=== PATIENT | female | born 1990 | race Caucasian/White ===

== ENCOUNTER 2018-07-22 12:01 | Emergency (ER) | payer SELFPAY ==
[2018-07-22 12:17] VITALS: BP 152/92; PULSE 74; TEMP 98.3; BMI 34.0
--- NOTE | 2018-07-22 13:29 | PDOC ---
History of Present Illness - General Chief Complaint: Depression Stated Complaint: ANXIETY Time Seen by Provider: 07/22/18 12:44 History Source: Patient Exam Limitations: No Limitations - History of Present Illness Initial Comments: 07/22/18 13:17 27 yo female no sig pmh presents to the ED with feelings of depression. Pt states she went through a difficult break up with her boyfriend 07/17/2018 which has been very difficult to handle. Admits to feelings of despair and unbearable anxiety when alone. Denies any thoughts of harming herself or others. Pt admits to having a great support system and lives with her mother but today was especially difficult since it was the first day she was left alone when her mother went to work. Pt called her mother while at work and mother convinced her to go to the ER. Pt admits to having break ups in the past that were easier to handle because she had a "rebound" but this time does not Mother is concerned that she may hurt herself and wants medications to be given Past History - Past Medical History Allergies/Adverse Reactions: Allergies Allergy/AdvReac Type Severity Reaction Status Date / Time No Known Allergies Allergy Verified 07/22/18 12:09 Home Medications: Ambulatory Orders No Home Medications 0 dose .ROUTE UTDICT 12/05/12 COPD: No - Suicide/Smoking/Psychosocial Hx Smoking Status: No Smoking History: Never smoked Number of Cigarettes Smoked Daily: 0 Review of Systems - Review of Systems Constitutional: No: Chills, Fever Respiratory: No: Shortness of Breath Cardiac (ROS): No: Chest Pain Neurological: No: Headache, Weakness, Unsteady Gait, Ataxia Psychiatric: Yes: Anxiety, Depression, Frequent Crying, Stressors, Sleep Pattern Change *Physical Exam - Vital Signs Last Vital Signs Temp Pulse Resp BP Pulse Ox 98.3 F 74 18 152/92 100 07/22/18 12:15 07/22/18 12:15 07/22/18 12:15 07/22/18 12:15 07/22/18 12:15 - Physical Exam General Appearance: Yes: Nourished, Appropriately Dressed, Apparent Distress ( while discussing stressors pt cries ). No: Disheveled, Alcohol on Breath, Intoxicated HEENT: positive: EOMI, CHARISSA Respiratory/Chest: positive: Lungs Clear. 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 negative: Sensory Deficit, Confused, Disoriented Moderate Sedation - Procedure Monitoring Vital Signs: Procedure Monitoring Vital Signs Temperature 98.3 F 07/22/18 12:15 Pulse Rate 74 07/22/18 12:15 Respiratory Rate 18 07/22/18 12:15 Blood Pressure 152/92 07/22/18 12:15 O2 Sat by Pulse Oximetry (%) 100 07/22/18 12:15 Medical Decision Making - Medical Decision Making 07/22/18 13:47 27 yo female no sig pmh presents to the ED with feelings of depression. Pt states she went through a difficult break up with her boyfriend 07/17/2018 which has been very difficult to handle. Admits to feelings of despair and unbearable anxiety when alone. Denies any thoughts of harming herself or others. Pt admits to having a great support system and lives with her mother but today was especially difficult since it was the first day she was left alone when her mother went to work. Pt called her mother while at work and mother convinced her to go to the ER. Pt admits to having break ups in the past that were easier to handle because she had a "rebound" but this time does not Mother is concerned that she may hurt herself and wants medications to be given Discussed that medications at this time are not indicated and can be habit forming/addictive. Pt is experiencing normal signs of depression related to a recent stress that should be managed with help from friends and family and a therapist/information that has been provided. Vitals stable No current medical complaints Social work involved and provide appropriate resources. See social work note Pt is safe for DC home with mother and f/u with therapist Mother and pt comfortable with plan *DC/Admit/Observation/Transfer Diagnosis at time of Disposition: Depressed Qualifiers: Depression Type: unspecified Qualified Code(s): F32.9 - Major depressive disorder, single episode, unspecified - Discharge Dispostion Disposition: HOME Condition at time of disposition: Stable Decision to Admit order: No - Referrals Referrals: [facility] [place] [facility] [place] [Provider Group] - Patient Instructions Printed Discharge Instructions: DI for Depression -- Adult Additional Instructions: [facility] ([facility] will call you within 48 hours for an appointment. Information was provided to you by social work, call the local therapists and schedule an appointment as soon as possible. Return to the ER for feelings of wanting to harm yourself or anyone else. Thank you - Post Discharge Activity Forms/Work/School Notes: My Personal Safety Plan
--- NOTE | 2018-07-22 14:18 | PDOC ---
Attending Attestation - Resident Resident Name: Leo Malone - ED Attending Attestation I have performed the following: I have examined & evaluated the patient, The case was reviewed & discussed with the resident, I agree w/resident's findings & plan - HPI HPI: 07/22/18 14:12 27-year-old female with no significant past medical history brought in by mom for feelings of depression in the setting of breaking up with her boyfriend. Patient has long-standing on again off again relationship with her boyfriend, last breakup was 5 days ago and she has been grieving, today for the first time she was alone at home and felt overwhelmed, mom brings her in for evaluation. Patient has no thoughts of hurting herself or others, no hallucinations. No history of SI/HI/AH/VH. Has not taken any substances or alcohol, has not attempted to hurt herself and does not want to hurt herself. Never had a therapist or psychiatrist. Denies any other complaints. No history of abuse. - Physicial Exam PE: 07/22/18 14:18 Vital signs are within normal limits Seated comfortably in stretcher, smiles on occasion, makes good eye contact, conversant and reasonable Skin is clear, exam is atraumatic - Medical Decision Making 07/22/18 14:19 27-year-old female breathing in the setting of recent breakup, no acute psychiatric concerns. Counseled at length with mom at bedside, no indication to start medications at this time Return precautions discussed regarding escalating symptoms Seen with social work and will refer to psychologist/therapist We'll give PCP referral as well
== END 2018-07-22 14:22 | disposition home or self-care (01) ==
LOC: JER 12:01
DX: F32.9 Major depressive disorder, single episode, unspecified (principal); F41.1 Generalized anxiety disorder
CPT/HCPCS: 99281-25

== ENCOUNTER 2020-02-03 08:21 | Emergency (ER) | payer SELFPAY ==
[2020-02-03 08:46] VITALS: BMI 29.2
--- NOTE | 2020-02-03 08:56 | PDOC ---
History of Present Illness - General Chief Complaint: Pain, Acute Stated Complaint: ABD PAIN History Source: Patient Exam Limitations: No Limitations - History of Present Illness Initial Comments: 02/03/20 09:22 29-year-old female , 2 terminations, LMP 3 weeks ago, h/o "abdominal issues " presents complaining of bloating with general abdominal cramping since 2 PM yesterday associated with nausea and approximately 7-8 episodes of vomiting. Denies diarrhea, fever, chills, back pain, urinary complaints, chest pain, shortness of breath, recent antibiotic use, recent travel, sick contact, vaginal discharge, vaginal bleeding or any other complaints. Patient states she is not tolerating fluids. Denies taking any pain medication today. Denies drinking alcohol or illicit substance abuse. ROS: as above PE: GENERAL: well-appearing, NAD HEAD: NCAT EYES: Pupils equal, round and reactive to light, sclera anicteric, conjunctiva clear ENT: pharynx: no erythema, no exudate, uvula midline NECK: supple CHEST: nontender RESP: clear, no w/r/r CARDIO: rrr, no m/g/r ABD: +BS, soft, minimal tenderness to palpation over midepigastric area and right upper quadrant, no r/g BACK: no midline spinal ttp, no CVAT EXTREMITIES: Normal range of motion, no edema NEUROLOGICAL: Normal speech, normal gait SKIN: Warm, Dry Is this a multiple visit Asthma Patient?: No Past History - Medical History Allergies/Adverse Reactions: Allergies Allergy/AdvReac Type Severity Reaction Status Date / Time No Known Allergies Allergy Verified 07/22/18 12:09 Home Medications: Ambulatory Orders No Home Medications 0 dose .ROUTE UTDICT 12/05/12 COPD: No - Reproductive History Is Patient Now?: No - Immunization History Immunization Up to Date: No - Psycho-Social/Smoking History Smoking Status: No Smoking History: Current some day smoker Have you smoked in the past 12 months: Yes Number of Cigarettes Smoked Daily: 0 Information on smoking cessation initiated: No - Substance Abuse Hx (Audit-C & DAST Scrn) How often the patient has a drink containing alcohol: Monthly or less Number of drinks the patient has on a typical day: 1 or 2 How often the patient has six or more drinks on one occasion: Less than monthly Score: In Men: 4 or > Positive; In Women: 3 or > Positive: 2 Screen Result (Pos requires Nsg. Audit-10AR): Negative In the last yr the pt used illegal drug/Rx for NonMed reason: No Score: Yes response is considered Positive: 0 Screen Result (Positive result requires Nsg. DAST-10): Negative *Physical Exam - Vital Signs Last Vital Signs Temp Pulse Resp BP Pulse Ox 97.9 F 71 18 119/70 99 02/03/20 08:31 02/03/20 08:31 02/03/20 08:31 02/03/20 08:31 02/03/20 08:31 ED Treatment Course - LABORATORY CBC & Chemistry Diagram: 02/03/20 09:36 02/03/20 09:36 Medical Decision Making - Medical Decision Making 02/03/20 09:25 29-year-old female , 2 terminations, LMP 3 weeks ago, h/o "abdominal issues " presents complaining of bloating with general abdominal cramping since 2 PM yesterday associated with nausea and approximately 7-8 episodes of vomiting. Denies diarrhea, fever, chills, back pain, urinary complaints, chest pain, shortness of breath, recent antibiotic use, recent travel, sick contact, vaginal discharge, vaginal bleeding or any other complaints. Patient states she is not tolerating fluids. Denies taking any pain medication today. Denies drinking alcohol or illicit substance abuse. cbc, cmp, ua, urine IV fluids Antiemetic Analgesia Abdominal ultrasound Reassess 02/03/20 12:59 CTAP: 1.6 cm cholelithiasis within the gallbladder neck without wall thickening Abdominal ultrasound: 1.2 x 2.2 cm gallstone without evidence of cholecystitis wbc: 15.2 Ordered morphine 2 mg IV given patient continues complaining of pain Will reassess 02/03/20 13:45 Pain improved Abdomen benign Prescription for Zofran sent to pharmacy Advised patient to follow-up with PMD this week return precautions discussed Discharge - Discharge Information Problems reviewed: Yes Clinical Impression/Diagnosis: Abdominal pain Qualifiers: Abdominal location: generalized Qualified Code(s): R10.84 - Generalized abdominal pain Condition: Stable Disposition: HOME - Admission No - Follow up/Referral Referrals: Noé Childress MD [Primary Care Provider] - - Patient Discharge Instructions Additional Instructions: You were found to have a stone in your gallbladder Avoid greasy, fatty foods Take Zofran as indicated and as needed for nausea Follow-up with your doctor this week If you develop worsening pain, bloating, fever, chills or any concerning symptom return to ED - Post Discharge Activity
[2020-02-03] MEDS ORDERED: ONDANSETRON 4 MG/2 ML VIAL IVPUSH ONE (09:11)
[2020-02-03] MEDS ORDERED: SODIUM CHLORIDE 0.9% 500 ML INFUS.BAG IV ONE (09:11)
[2020-02-03] MEDS ORDERED: morphine CARPU-JECT 2 MG/1 ML DISP.SYRIN IVPUSH ONE ×2 (09:11→12:56)
[2020-02-03] MEDS ORDERED: MORPHINE SULFATE 2 MG/ML VIAL ONE ×2 (09:22→12:59)
[2020-02-03 10:02] LABS: BASO % 0.1 % (0-2.0); HEMATOCRIT 43.1 % (32.4-45.2); HEMOGLOBIN 14.2 GM/dL (10.7-15.3); LYMPH % 3.6 % (8-40); MCH 27.8 pg (25.7-33.7); MCHC 32.9 g/dl (32.0-36.0); MEAN CELL VOLUME 84.3 fl (80-96); MEAN PLT VOLUME 8.3 fl (7.5-11.1); MONO % 1.5 % (3.8-10.2); NEUT % 94.8 % (42.8-82.8); PLATELET COUNT 314 K/MM3 (134-434); RBC 5.12 M/mm3 (3.60-5.2); RDW 14.4 % (11.6-15.6); WHITE BLOOD COUNT 15.2 K/mm3 (4.0-10.0)
[2020-02-03 10:06] LABS: EPI CELLS 36 /uL (0-25.1); HYALINE CASTS 17 /uL (0-3.1); URINE APPEARANCE CLOUDY; URINE BACTERIA >9,000 /uL (0-1359); URINE BILIRUBIN NEGATIVE (NEGATIVE); URINE COLOR YELLOW; URINE GLUCOSE (UA) NEGATIVE (NEGATIVE); URINE KETONE TRACE (NEGATIVE); URINE LEUK ESTERASE TRACE (NEGATIVE); URINE NITRITE NEGATIVE (NEGATIVE); URINE PROTEIN TRACE (NEGATIVE); URINE RBC 22 /uL (0-23.9); URINE WBC 187 /uL (0-25.8)
[2020-02-03 10:07] LABS: HCG,QUALITATIVE URINE Negative
[2020-02-03 10:39] LABS: BILIRUBIN,TOTAL 0.8 mg/dL (0.2-1); BLOOD UREA NITROGEN 7.4 mg/dL (7-18); CALCIUM 9.1 mg/dL (8.5-10.1); CREATININE 0.8 mg/dL (0.55-1.3); POTASSIUM 3.8 mmol/L (3.5-5.1); TOT PROT 8.7 g/dl (6.4-8.2)
[2020-02-03 12:27] LABS: ANISOCYTOSIS 0; MACROCYTOSIS 0; PLATELET ESTIMATE NORMAL
[2020-02-03 13:51] VITALS: BP 146/87; PULSE 67; TEMP 98
== END 2020-02-03 13:51 | disposition home or self-care (01) ==
LOC: JER 08:21 → SUPCPDRO 08:21 → JER 13:51
PROC: 3E033NZ Introduction of Analgesics, Hypnotics, Sedatives into Peripheral Vein, Percutaneous Approach (ICD-10-PCS; principal; 2020-02-03)
PROC: 3E033GC Introduction of Other Therapeutic Substance into Peripheral Vein, Percutaneous Approach (ICD-10-PCS; 2020-02-03)
DX: R10.84 Generalized abdominal pain (principal)
CPT/HCPCS: 36415; 74177-TC; 76705-TC; 80053; 81003; 84703; 85025; 99285-25; Q9967

== ENCOUNTER 2020-12-11 04:22 | Emergency (ER) | payer SELFPAY ==
[2020-12-11 04:52] VITALS: BMI 39.6
[2020-12-11] MEDS ORDERED: SODIUM CHLORIDE 0.9% 500 ML INFUS.BAG IV ONE (06:19)
[2020-12-11] MEDS ORDERED: ACETAMINOPHEN 1000 MG/100 ML VIAL (NON FORMULARY) IVPB ONE (06:19)
[2020-12-11] MEDS ORDERED: ACETAMINOPHEN INJECTION 100 ML IVPB ONE (06:22)
[2020-12-11 07:07] LABS: ALBUMIN 3.4 g/dl (3.4-5.0); BLOOD UREA NITROGEN 8.2 mg/dL (7-18); CALCIUM 8.6 mg/dL (8.5-10.1)
[2020-12-11 07:10] LABS: CREATININE 0.5 mg/dL (0.55-1.3)
[2020-12-11 07:12] LABS: BILIRUBIN,TOTAL 0.4 mg/dL (0.2-1); TOT PROT 7.4 g/dl (6.4-8.2)
[2020-12-11 07:18] LABS: BASO % 0.3 % (0-2.0); EOS % 1.3 % (0-4.5); HEMATOCRIT 39.6 % (32.4-45.2); HEMOGLOBIN 13.4 GM/dL (10.7-15.3); LYMPH % 18.1 % (8-40); MCH 27.7 pg (25.7-33.7); MCHC 33.9 g/dl (32.0-36.0); MEAN CELL VOLUME 81.8 fl (80-96); MEAN PLT VOLUME 8.2 fl (7.5-11.1); MONO % 8.1 % (3.8-10.2); NEUT % 72.2 % (42.8-82.8); PLATELET COUNT 297 10^3/uL (134-434); RBC 4.84 M/mm3 (3.60-5.2); RDW 14.4 % (11.6-15.6); WHITE BLOOD COUNT 10.5 K/mm3 (4.0-10.0)
[2020-12-11 07:24] LABS: INR 1.21 (0.83-1.09); PROTHROMBIN TIME (PATIENT) 14.8 SEC (9.7-13.0)
[2020-12-11 07:26] LABS: ACTIVATED PTT 33.8 SECONDS (25.2-36.5)
[2020-12-11 08:20] LABS: URINE APPEARANCE CLOUDY; URINE BILIRUBIN NEGATIVE (NEGATIVE); URINE COLOR DK YELLOW; URINE GLUCOSE (UA) NEGATIVE (NEGATIVE); URINE KETONE TRACE (NEGATIVE); URINE LEUK ESTERASE NEGATIVE (NEGATIVE); URINE NITRITE NEGATIVE (NEGATIVE); URINE PROTEIN TRACE (NEGATIVE)
[2020-12-11 10:54] VITALS: BP 113/77; PULSE 82; TEMP 98.2
== END 2020-12-11 10:54 | disposition home or self-care (01) ==
LOC: JER 04:22
PROC: 3E0333Z Introduction of Anti-inflammatory into Peripheral Vein, Percutaneous Approach (ICD-10-PCS; principal; 2020-12-11)
DX: R10.11 Right upper quadrant pain (principal)
CPT/HCPCS: 36415; 76705-TC; 80053; 81003; 83690; 84703; 85025; 85610; 85730; 86850; 86900; 86901; 87086; 99284-25; J0131